=== PATIENT | female | born 1975 | race African-American/Black ===

== ENCOUNTER 2017-01-20 08:41 | Emergency (ER) | payer SELFPAY ==
[2017-01-20] MEDS ORDERED: ONDANSETRON 4 MG TAB.RAPDIS PO ONE (09:34)
[2017-01-20] MEDS ORDERED: KETOROLAC TROMETHAMINE 60 MG/2 ML SDV IM ONE (09:34)
--- NOTE | 2017-01-20 09:37 | ER Document Report ---
ED Medical Screen (RME) - General Chief Complaint: Nausea/Vomiting/Diarrhea Stated Complaint: VOMITING Time Seen by Provider: 01/20/17 09:31 Notes: Patient states she has had vomiting and diarrhea and a headache since Thursday. Patient states the diarrhea is lessened today, but is vomited 3 times this morning. Patient denies fever. Patient works in a childcare center. I have greeted and performed a rapid initial assessment of this patient. A comprehensive ED assessment and evaluation of the patient, analysis of test results and completion of the medical decision making process will be conducted by additional ED providers. TRAVEL OUTSIDE OF THE [place] IN LAST 30 DAYS: No - HPI Patient complains to provider of: vomiting/diarrhea/[place] Onset: Other Onset/Duration: Sudden Quality of pain: Cramping, Throbbing Severity: Moderate Pain Level: 4 Associated Symptoms: Abdominal pain, Diarrhea, Headache, Nausea, Vomiting Exacerbated by: Food Relieved by: Denies Similar symptoms previously: Yes Recently seen / treated by doctor: No - Related Data Smoking: Non-smoker Frequency of alcohol use: None Drug Abuse: None Allergies/Adverse Reactions: codeine Allergy (Verified 01/20/17 09:26) Past Medical History - General Information source: Patient - Social History Cigarette use (# per day): No Frequency of alcohol use: None Drug Abuse: None Lives with: Family Family history: Reviewed & Not Pertinent - Medical History Medical History: Negative Past Surgical History: Reports: Hx Cholecystectomy, Hx Orthopedic Surgery - Immunizations Immunizations up to date: Yes Hx Diphtheria, Pertussis, Tetanus Vaccination: Yes Review of Systems - Review of Systems -: Yes ROS unobtainable due to patient's medical condition Constitutional: No symptoms reported EENT: No symptoms reported Cardiovascular: No symptoms reported Respiratory: No symptoms reported Gastrointestinal: See HPI Genitourinary: No symptoms reported Female Genitourinary: No symptoms reported Musculoskeletal: No symptoms reported Skin: No symptoms reported Hematologic/Lymphatic: No symptoms reported Neurological/Psychological: No symptoms reported Physical Exam - Vital signs Vitals: Temp Pulse Resp BP Pulse Ox 98.3 F 69 18 119/74 99 01/20/17 08:47 01/20/17 08:47 01/20/17 08:47 01/20/17 08:47 01/20/17 08:47 - General General appearance: Appears well, Alert In distress: None - HEENT Head: Normocephalic Eyes: Normal Conjunctiva: Normal Mucous membranes: Normal - Respiratory Respiratory status: No respiratory distress Breath sounds: Normal - Cardiovascular Rhythm: Regular Heart sounds: Normal auscultation - Abdominal Inspection: Normal Bowel sounds: Hyperactive Tenderness: Tender - mild diffuse tenderness - Extremities General upper extremity: Normal inspection General lower extremity: Normal inspection - Neurological Neuro grossly intact: Yes Cognition: Normal Orientation: AAOx4 - Psychological Associated symptoms: Normal affect, Normal mood - Skin Skin Temperature: Warm Skin Moisture: Dry Skin Color: Normal Course - Re-evaluation Re-evalutation: 01/20/17 10:18 Patient states headache relieved with Toradol. - Vital Signs Vital signs: Temp Pulse Resp BP Pulse Ox 98.3 F 69 18 119/74 99 01/20/17 08:47 01/20/17 08:47 01/20/17 08:47 01/20/17 08:47 01/20/17 08:47 - Laboratory Laboratory results interpreted by me: 01/20/17 09:40 Urine Urobilinogen 2.0 H Doctor's Discharge - Discharge Clinical Impression: Vomiting and diarrhea Condition: Good Disposition: HOME, SELF-CARE Instructions: Antinausea Medication ([facility]), Vomiting ([facility]), Diarrhea, Nonspecific ([facility]) Additional Instructions: Push fluids 24 hours, advance diet as tolerated Tylenol or Motrin as needed for headache Follow-up with your doctor for recheck if still having symptoms, or return if worsens. Prescriptions: Ondansetron [Zofran Odt 4 mg Tablet] 1 - 2 tab PO Q4HP PRN #10 tab.rapdis PRN Reason: Forms: Return to Work
[2017-01-20 10:09] LABS: APPEARANCE,URINE SLIGHTLY-CLOUDY; BILIRUBIN,URINE NEGATIVE (NEGATIVE); GLUCOSE, URINE NEGATIVE (NEGATIVE); KETONES,URINE NEGATIVE (NEGATIVE); LEUKOCYTE ESTERASE,URINE NEGATIVE (NEGATIVE); NITRITE,URINE NEGATIVE (NEGATIVE); PROTEIN,URINE NEGATIVE (NEGATIVE); URINE SPECIFIC GRAVITY 1.012
[2017-01-20 10:34] VITALS: BP 111/68
== END 2017-01-20 10:33 | disposition home or self-care (01) ==
LOC: ER 08:41
DX: R11.2 Nausea with vomiting, unspecified (principal); R19.7 Diarrhea, unspecified; R51 Headache; Z88.6 Allergy status to analgesic agent; Z90.49 Acquired absence of other specified parts of digestive tract
CPT/HCPCS: 99284; 96372; 81001; J1885; S0119